=== PATIENT | female | born 1960 | race African-American/Black ===

== ENCOUNTER 2017-09-02 16:02 | Inpatient (IN) | payer SELFPAY ==
[~2017-09-02] VITALS: Ht 172.7 cm; Wt 69.9 kg
[~2017-09-02 16:02] MED LIST: ENALAPRIL 2.5MG/2ML VIAL 2ML IV NR; INSHUMSS SUBCUT
[2017-09-02] MEDS ORDERED: KETOROLAC 30MG/ML VIAL IV STA (16:38)
[2017-09-02] MEDS ORDERED: SODIUM CHLORIDE 0.9% 1,000 ML IV ONE (16:38)
[2017-09-02] MEDS ORDERED: ONDANSETRON HCL 4MG/2ML VIAL IV STA (16:38)
[2017-09-02 17:05] LABS: BASOPHILS % 0.3 % (0.0-2.0); EOSINOPHILS % 1.3 % (0.0-5.0); HEMATOCRIT. 35.7 % (36.0-48.0); LYMPHOCYTES % 12.1 % (20.0-50.0); MEAN CORPUSCULAR HEMOGLOBIN 29.4 pg (28.0-32.0); MEAN CORPUSCULAR VOLUME 87.7 fL (81.0-99.0); MEAN PLATELET VOLUME 8.3 fl (7.4-10.4); MONOCYTES % 3.7 % (2.0-8.0); NEUTROPHILS % 82.6 % (40.0-76.0); PLATELET 327 x1000/uL (130-400); RED BLOOD CELL COUNT 4.07 mill/uL (4.2-5.4); RED CELL DISTRIBUTION WIDTH 13.3 % (11.6-14.6)
[2017-09-02 17:12] LABS: CHLORIDE 111 mEq/L (98-107); PROTHROMBIN TIME 10.6 sec (9.4-11.6)
[2017-09-02 17:20] LABS: CARBON DIOXIDE 25 mEq/L (21-32); ETHANOL BLOOD < 10 mg/dL
[2017-09-02] MEDS ORDERED: HYDRALAZINE 20MG/ML VIAL IV ONE ×2 (18:45→20:00)
[2017-09-02] MEDS ORDERED: METOCLOPRAMIDE HCL 10MG/2ML VIAL IV ONE (20:45)
[2017-09-02] MEDS ORDERED: ENALAPRIL 1.25MG/ML VIAL 1ML IV PRN (23:45)
[2017-09-03] MEDS ORDERED: CLONIDINE HCL 0.3MG/24HR PATCH TD NR (00:15)
[2017-09-03] MEDS: DEXT 5%/0.45% NACL 1000ML 1,000 ML IV SCH ×3 (01:55→21:46)
[2017-09-03 02:27] LABS: CLARITY URINE CLEAR (CLEAR); COLOR URINE YELLOW (YELLOW); KETONES URINE 2+ (NEGATIVE); LEUKOCYTE ESTERASE URINE NEGATIVE (NEGATIVE); NITRITE URINE NEGATIVE (NEGATIVE); OCCULT BLOOD URINE 1+ (NEGATIVE); PH URINE 5.5 (4.5-8.0); PROTEIN URINE 3+ (NEGATIVE); SPECIFIC GRAVITY URINE 1.017 (1.005-1.030); UROBILINOGEN URINE 0.2 E.U./dL (0.2-1.0)
[2017-09-03 02:37] LABS: *AMPHETAMINES SCREEN URINE NEGATIVE (NEGATIVE); *BARBITURATES SCREEN URINE NEGATIVE (NEGATIVE); *BENZODIAZEPINES SCREEN URINE NEGATIVE (NEGATIVE); *COCAINE SCREEN URINE NEGATIVE (NEGATIVE); CANNABINOID URINE SCREEN PRESUMTIVE POSITIVE (NEGATIVE); METHADONE URINE SCREEN NEGATIVE (NEGATIVE); OPIATES URINE SCREEN NEGATIVE (NEGATIVE); PHENCYCLIDINE URINE SCREEN NEGATIVE (NEGATIVE)
[2017-09-03] MEDS ORDERED: INSULIN REGULAR (HUMULIN R) 300UNITS/3ML SUBCUT SCH (08:30)
[2017-09-03 11:30] VITALS: BP 146/82
[2017-09-03] MEDS: METOPROLOL TARTRATE 25MG TABLET PO SCH ×2 (12:26→21:41)
[2017-09-03] MEDS: AMLODIPINE 10MG TABLET PO SCH (12:27)
[2017-09-03] MEDS ORDERED: INSASP SUBCUT (12:45)
[2017-09-03] MEDS ORDERED: ONDANSETRON HCL 4MG/2ML VIAL IV PRN (13:15)
[2017-09-03] MEDS ORDERED: DEXTROSE 50% WATER 50ML SYRINGE IV PRN (13:15)
[2017-09-03] MEDS ORDERED: CEFTRIAXONE 1,000 MG in DEXTROSE 5% WATER 50 ML IV SCH (15:00)
[2017-09-03] MEDS ORDERED: TRAMADOL 50MG TABLET PO PRN (15:30)
[2017-09-03 16:00] VITALS: BP 148/84
[2017-09-03] MEDS: INSULIN LISPRO 100 UNITS/ML SUBCUT SCH ×2 (17:50→21:44)
[2017-09-03] MEDS: BLOOD SUGAR DIAGNOSTIC STRIP TEST SCH ×2 (17:50→21:46)
[2017-09-03 20:00] VITALS: BP 116/65
[2017-09-03] MEDS ORDERED: INSULIN GLARGINE UD 100 UNITS/ML SYR SUBCUT SCH (22:00)
[2017-09-04 04:02] VITALS: BP 138/74
[2017-09-04] MEDS: BLOOD SUGAR DIAGNOSTIC STRIP TEST SCH (06:20)
[2017-09-04] MEDS: INSULIN LISPRO 100 UNITS/ML SUBCUT SCH (07:50)
[2017-09-04 08:03] VITALS: BP 134/75
[2017-09-04 09:52] LABS: BASOPHILS % 0.4 % (0.0-2.0); EOSINOPHILS % 0.9 % (0.0-5.0); HEMOGLOBIN. 12.7 g/dL (12.0-16.0); LYMPHOCYTES % 17.2 % (20.0-50.0); MEAN CORPUSCULAR HEMOGLOBIN 28.9 pg (28.0-32.0); MEAN CORPUSCULAR VOLUME 88.7 fL (81.0-99.0); MEAN PLATELET VOLUME 8.5 fl (7.4-10.4); MONOCYTES % 6.1 % (2.0-8.0); NEUTROPHILS % 75.4 % (40.0-76.0); PLATELET 309 x1000/uL (130-400); RED CELL DISTRIBUTION WIDTH 13.4 % (11.6-14.6)
[2017-09-04] MEDS: METOPROLOL TARTRATE 25MG TABLET PO SCH (10:25)
[2017-09-04] MEDS: AMLODIPINE 10MG TABLET PO SCH (10:26)
[2017-09-04 10:38] VITALS: BP 134/75
[2017-09-04 10:48] LABS: CARBON DIOXIDE 27 mEq/L (21-32); CHLORIDE 104 mEq/L (98-107)
[2017-09-04 11:56] VITALS: BP 137/79
== END 2017-09-04 12:00 | disposition home or self-care (01) | DRG 199 ==
LOC: ER 16:52 → 6WST 21:11 → SUPCPDRO 09-03 00:04 → ENRESERV 09-03 07:22
PROVIDERS: ADMIT Hospitalist; ATTEND Hospitalist
DX: I16.1 Hypertensive emergency (principal); N17.9 Acute kidney failure, unspecified; K31.84 Gastroparesis; E11.65 Type 2 diabetes mellitus with hyperglycemia; I16.0 Hypertensive urgency; E11.43 Type 2 diabetes mellitus with diabetic autonomic (poly)neuropathy; D72.829 Elevated white blood cell count, unspecified; I10 Essential (primary) hypertension; Z88.2 Allergy status to sulfonamides; Z88.8 Allergy status to other drugs, medicaments and biological substances; Z91.040 Latex allergy status; Z79.4 Long term (current) use of insulin
CPT/HCPCS: 36415; 74176; 80053; 80305; 81001; 82962; 83690; 85025; 85610; 96365; 96375; 99291; C1893; G0482; J0360; J0696; J1815; J1885; J2405; J2765; J3490; J7030; J7060

== ENCOUNTER 2017-09-23 12:24 | Inpatient (IN) | payer SELFPAY ==
[~2017-09-23] VITALS: Ht 157.5 cm; Wt 69.4 kg
[2017-09-23] MEDS: HYDRALAZINE HCL 50MG TABLET PO SCH ×2 (00:01→19:06)
[~2017-09-23 12:24] MED LIST changes: -ENALAPRIL 2.5MG/2ML VIAL 2ML IV NR; +INSASP SUBCUT
[2017-09-23] MEDS ORDERED: ONDANSETRON HCL 4MG/2ML VIAL IV STA (13:33)
[2017-09-23] MEDS ORDERED: FAMOTIDINE 20MG/2ML VIAL IV STA (13:33)
[2017-09-23] MEDS ORDERED: MORPHINE SULFATE 4 MG/ML CPJ (NOT FOR IM USE) IV STA (13:33)
[2017-09-23] MEDS ORDERED: SODIUM CHLORIDE 0.9% 1,000 ML IV ONE (13:33)
[2017-09-23] MEDS ORDERED: MAGNESIUM/ALUMINUM HYDROXIDE/SIMETHICONE 30ML UDC PO STA (13:33)
[2017-09-23 14:23] LABS: HEMATOCRIT. 36.7 % (36.0-48.0); HEMOGLOBIN. 12.1 g/dL (12.0-16.0); MEAN CORPUSCULAR HEMOGLOBIN 28.9 pg (28.0-32.0); MEAN CORPUSCULAR VOLUME 87.4 fL (81.0-99.0); MEAN PLATELET VOLUME 7.9 fl (7.4-10.4); PLATELET 378 x1000/uL (130-400); RED CELL DISTRIBUTION WIDTH 13.7 % (11.6-14.6)
[2017-09-23 14:31] LABS: D-DIMER 0.61 mg/L FEU (<0.50); PROTHROMBIN TIME 10.8 sec (9.4-11.6)
[2017-09-23 14:38] LABS: PLATELET ESTIMATE NORMAL
[2017-09-23 14:41] LABS: CARBON DIOXIDE 25 mEq/L (21-32); CHLORIDE 104 mEq/L (98-107); ETHANOL BLOOD < 10 mg/dL; TROPONIN I < 0.02 ng/mL (0.00-0.04)
[2017-09-23 15:51] LABS: CLARITY URINE CLEAR (CLEAR); COLOR URINE YELLOW (YELLOW); KETONES URINE TRACE (NEGATIVE); LEUKOCYTE ESTERASE URINE TRACE (NEGATIVE); NITRITE URINE NEGATIVE (NEGATIVE); OCCULT BLOOD URINE 2+ (NEGATIVE); PH URINE 7.5 (4.5-8.0); PROTEIN URINE 3+ (NEGATIVE); SPECIFIC GRAVITY URINE 1.016 (1.005-1.030); UROBILINOGEN URINE 0.2 E.U./dL (0.2-1.0)
[2017-09-23 15:59] LABS: *AMPHETAMINES SCREEN URINE NEGATIVE (NEGATIVE); *BARBITURATES SCREEN URINE NEGATIVE (NEGATIVE); *BENZODIAZEPINES SCREEN URINE NEGATIVE (NEGATIVE); *COCAINE SCREEN URINE NEGATIVE (NEGATIVE); CANNABINOID URINE SCREEN PRESUMTIVE POSITIVE (NEGATIVE); METHADONE URINE SCREEN NEGATIVE (NEGATIVE); OPIATES URINE SCREEN PRESUMTIVE POSITIVE (NEGATIVE); PHENCYCLIDINE URINE SCREEN NEGATIVE (NEGATIVE)
[2017-09-23] MEDS ORDERED: PIPERACILLIN/TAZ 3.375G PREMIX 50 ML IV ONE (17:45)
[2017-09-23] MEDS ORDERED: DIPHENHYDRAMINE 50MG/ML VIAL IV PRN (18:15)
[2017-09-23] MEDS ORDERED: ONDANSETRON HCL 4MG/2ML VIAL IV PRN (18:15)
[2017-09-23] MEDS ORDERED: KETOROLAC 15MG/ML VIAL IV PRN (18:15)
[2017-09-23] MEDS ORDERED: ACETAMINOPHEN 325MG TABLET PO PRN (18:15)
[2017-09-23] MEDS ORDERED: DOCUSATE SODIUM 100MG CAPSULE PO PRN (18:15)
[2017-09-23] MEDS ORDERED: DEXTROSE 50% WATER 50ML SYRINGE IV PRN (18:15)
[2017-09-23] MEDS ORDERED: NA PHOS,M-B/NA PHOS,DI-BA ENEMA 118ML PR PRN (18:15)
[2017-09-23] MEDS ORDERED: LORAZEPAM 0.5MG TABLET PO PRN (18:15)
[2017-09-23] MEDS ORDERED: IPRATROPIUM/ALBUTEROL 0.5-3(2.5)MG/3ML NEB INH PRN (18:15)
[2017-09-23] MEDS ORDERED: GUAIFENESIN 200MG/10ML SUGAR FREE UDC PO PRN (18:15)
[2017-09-23] MEDS ORDERED: MAGNESIUM/ALUMINUM HYDROXIDE/SIMETHICONE 30ML UDC PO PRN (18:15)
[2017-09-23] MEDS ORDERED: CLONIDINE 0.1MG TABLET PO PRN (18:15)
[2017-09-23] MEDS ORDERED: NITROGLYCERIN 0.4MG TABLET SL SL PRN (18:15)
[2017-09-23] MEDS: METOPROLOL TARTRATE 25MG TABLET PO SCH (18:58)
[2017-09-23] MEDS: AMLODIPINE 10MG TABLET PO SCH (19:06)
[2017-09-23] MEDS: LISINOPRIL 20MG TABLET PO SCH (19:06)
[2017-09-23 22:05] VITALS: BP 118/61
[2017-09-23 22:10] VITALS: BP 118/61
[2017-09-23] MEDS ORDERED: ZOLPIDEM TARTRATE 5MG TABLET PO PRN (22:30)
[2017-09-23] MEDS ORDERED: ENOXAPARIN 30MG/0.3ML SYR SUBCUT SCH (22:45)
[2017-09-23] MEDS ORDERED: INSULIN GLARGINE UD 100 UNITS/ML SYR SUBCUT SCH (23:30)
[2017-09-24] VITALS (7 sets, daily range): BP systolic 18–164; BP diastolic 37–119
[2017-09-24] MEDS ORDERED: CEFTRIAXONE 1 G PREMIX 50 ML IV SCH
[2017-09-24] MEDS ORDERED: LEVOFLOXACIN 500MG PREMIX 100 ML IV NR (01:00)
[2017-09-24] MEDS: HYDRALAZINE HCL 50MG TABLET PO SCH (05:20)
[2017-09-24] MEDS: BLOOD SUGAR DIAGNOSTIC STRIP TEST SCH ×2 (06:10→12:22)
[2017-09-24] MEDS: METOCLOPRAMIDE 10MG/10 ML UDC PO SCH ×2 (06:15→11:45)
[2017-09-24] MEDS: SUCRALFATE 1 G/10 ML UDC PO SCH ×2 (06:15→11:45)
[2017-09-24] MEDS: INSULIN LISPRO 100 UNITS/ML SUBCUT SCH ×2 (06:20→12:15)
[2017-09-24] MEDS: AMLODIPINE 10MG TABLET PO SCH (09:00)
[2017-09-24] MEDS ORDERED: FAMOTIDINE 20MG/2ML VIAL IV SCH (09:00)
[2017-09-24] MEDS: METOPROLOL TARTRATE 25MG TABLET PO SCH (09:00)
[2017-09-24] MEDS: LISINOPRIL 20MG TABLET PO SCH (09:00)
[2017-09-25] MEDS ORDERED: LEVOFLOXACIN 250MG PREMIX 50 ML IV SCH (01:00)
== END 2017-09-24 12:35 | disposition home or self-care (01) | DRG 48 ==
LOC: ER 12:30 → 5WST 17:34 → EDBEDREQ 17:37 → ENRESERV 19:00
PROVIDERS: ADMIT Internal Medicine; ATTEND Internal Medicine
DX: E11.43 Type 2 diabetes mellitus with diabetic autonomic (poly)neuropathy (principal); N17.9 Acute kidney failure, unspecified; E11.65 Type 2 diabetes mellitus with hyperglycemia; I10 Essential (primary) hypertension; K31.84 Gastroparesis; N39.0 Urinary tract infection, site not specified; F12.10 Cannabis abuse, uncomplicated; Z88.2 Allergy status to sulfonamides; Z88.8 Allergy status to other drugs, medicaments and biological substances; Z91.040 Latex allergy status; Z79.899 Other long term (current) drug therapy; Z79.4 Long term (current) use of insulin; Z98.891 History of uterine scar from previous surgery; Z71.51 Drug abuse counseling and surveillance of drug abuser; Z91.14 Patient's other noncompliance with medication regimen
CPT/HCPCS: 36415; 71045; 74018; 80053; 80305; 81001; 82962; 83036; 83605; 83690; 83880; 84484; 85025; 85379; 85610; 87040; 87086; 93005; 96361; 96365; 96375; 99285; G0482; J0696; J1200; J1650; J1815; J1956; J2270; J2405; J2543; J3490; J7030; J8597

== ENCOUNTER 2018-01-16 14:08 | Emergency (ER) | payer MEDICAID ==
[~2018-01-16] VITALS: Ht 167.6 cm; Wt 66.0 kg
[2018-01-16 15:15] LABS: BASOPHILS % 0.6 % (0.0-2.0); EOSINOPHILS % 3.2 % (0.0-5.0); HEMATOCRIT. 35.4 % (36.0-48.0); HEMOGLOBIN. 11.8 g/dL (12.0-16.0); LYMPHOCYTES % 18.6 % (20.0-50.0); MEAN CORPUSCULAR HEMOGLOBIN 29.3 pg (28.0-32.0); MEAN CORPUSCULAR VOLUME 87.8 fL (81.0-99.0); MEAN PLATELET VOLUME 8.4 fl (7.4-10.4); MONOCYTES % 4.1 % (2.0-8.0); NEUTROPHILS % 73.5 % (40.0-76.0); PLATELET 344 x1000/uL (130-400); RED BLOOD CELL COUNT 4.04 mill/uL (4.2-5.4); RED CELL DISTRIBUTION WIDTH 13.3 % (11.6-14.6)
[2018-01-16] MEDS ORDERED: ONDANSETRON HCL 4MG/2ML VIAL IV STA (15:18)
[2018-01-16] MEDS ORDERED: MORPHINE SULFATE 4 MG/ML CPJ (NOT FOR IM USE) IV STA (15:18)
[2018-01-16] MEDS ORDERED: SODIUM CHLORIDE 0.9% 1,000 ML IV ONE (15:18)
[2018-01-16 15:20] LABS: CHLORIDE 107 mEq/L (98-107)
[2018-01-16 15:22] LABS: PROTHROMBIN TIME 10.3 sec (9.4-11.6)
[2018-01-16] MEDS ORDERED: LIDOCAINE HCL/PF 1% 2ML VIAL ONE (15:23)
[2018-01-16 15:26] LABS: CLARITY URINE CLEAR (CLEAR); COLOR URINE YELLOW (YELLOW); KETONES URINE NEGATIVE (NEGATIVE); LEUKOCYTE ESTERASE URINE NEGATIVE (NEGATIVE); NITRITE URINE NEGATIVE (NEGATIVE); OCCULT BLOOD URINE 1+ (NEGATIVE); PROTEIN URINE 3+ (NEGATIVE); SPECIFIC GRAVITY URINE 1.018 (1.005-1.030); UROBILINOGEN URINE 0.2 E.U./dL (0.2-1.0)
[2018-01-16 15:46] LABS: BG BASE EXCESS -2.6 mmol/L (-2.0-2.0); BG DEOXYHEMOGLOBIN 4.9 % (0.0-5.0); BG FRACTION INSPIRED OXYGEN 21; BG HCO3 ACT 22.8 mmol/L (22.0-26.0); BG METHEMOGLOBIN 0.1 % (0.0-1.5); BG OXYGEN SATURATION 95.1 % (92.0-98.5); BG PCO2 41.7 mmHg (35.0-45.0); BG PH 7.355 (7.350-7.450); BG PO2 77.3 mmHg (75.0-100.0); BG SAMPLE SITE RIGHT RADIAL; BG TOTAL HEMOGLOBIN 11.8 g/dL (12.0-18.0); BG VENT MODE ROOM AIR
[2018-01-16] MEDS ORDERED: METOCLOPRAMIDE HCL 10MG/2ML VIAL IV ONE (17:00)
[2018-01-16] MEDS ORDERED: HYDRALAZINE 20MG/ML VIAL IV ONE (20:15)
[2018-01-16 21:15] VITALS: BP 191/88
== END 2018-01-16 21:33 | disposition left against medical advice (07) ==
LOC: ER 15:06
DX: R10.84 Generalized abdominal pain (principal); R11.2 Nausea with vomiting, unspecified; E11.9 Type 2 diabetes mellitus without complications; R00.0 Tachycardia, unspecified; I11.9 Hypertensive heart disease without heart failure; Z88.2 Allergy status to sulfonamides; Z79.4 Long term (current) use of insulin
CPT/HCPCS: 36415; 36600; 80053; 81003; 82010; 82375; 82805; 82962; 83690; 84484; 85025; 85610; 93005; 96361; 96374; 96375; 99285; J0360; J2270; J2405; J2765; J3490; J7030